=== PATIENT | female | born 1960 | race Caucasian/White ===

== ENCOUNTER → 2018-07-16 | Outpatient (CLI) | payer BC ==
--- NOTE | 2018-07-16 16:03 | CT ---
EXAM DESCRIPTION: Abdomen/Pelvis w/Contrast: Computed Tomography. CLINICAL HISTORY: 57 years Female DIARRHEA COMPARISON: None. TECHNIQUE: Spiral-axial scans at 5 x 5 mm intervals through the abdomen and pelvis, after nonionic IV contrast without oral contrast Coronal and sagittal 2.0 mm reconstructions. Delayed scans, liver through the pelvis. Axial-spiral 5mm. No adverse reactions. Total Exam DLP: 1120.89 mGy-cm. This exam was performed according to our departmental dose-optimization program which includes automated exposure control, adjustment of the mA and/or kV according to patient size and/or use of iterative reconstruction technique; to reduce radiation dose to as low as reasonably achievable (ALARA). FINDINGS: Lung bases and pleura: Small parenchymal pleural scar medial left base. Liver, Stomach, Spleen, Adrenal Glands: Negative. Pancreas, Gallbladder, Ducts: Gallbladder visualized. No free fluid. Ducts and pancreas unremarkable. Kidneys and Ureters: Negative. Mesentery: Questionable fluid in the cul-de-sac. Minimal stranding around the vaginal cuff. No free air. No fatty stranding or fascial thickening in the abdomen.. Aorta: Minimal atherosclerotic calcification. Normal diameter of the lumen. Small Bowel: Normal caliber. Terminal Ileum/Cecum normal caliber. Normal caliber of the appendix. Normal density of the surrounding fat. Colon: Normal caliber. Diverticula in the distal descending colon and sigmoid colon but no evidence of complications. Pelvic Organs: The borders of the vaginal cuff are well-defined with minimal fatty stranding. This extends into the right adnexa abutting segments of ileum. Minimal fluid in the cul-de-sac. Spine and Bony Pelvis: Negative. Abdominal Wall/Back Soft Tissues: Negative. IMPRESSION: 1. Increased density of the pelvic fat around the vaginal cuff and right adnexa with no definite mass. Minimal fluid in the cul-de-sac. This may represent a chronic process versus acute inflammation. Small bowel also seen the right adnexa but no small bowel obstruction or significant distention. Normal CT appearance of the appendix. Consider endovaginal pelvic ultrasound if there are clinical findings in the pelvis. 2. Diverticula in the distal descending colon and sigmoid but no complications. CRITICAL COMMUNICATION: The critical value was discussed directly by phone with Dr. Ad Whaley at approximately 1535 hours, on 07/16/2018. Electronically signed by: Rajesh Santiago MD 07/16/2018 4:02 PM [employer] [employer]
== END ==
LOC: CT 12:45
PROVIDERS: ATTEND Family Medicine
DX: R19.7 Diarrhea, unspecified (principal); K57.30 Diverticulosis of large intestine without perforation or abscess without bleeding

== ENCOUNTER → 2018-07-17 | Outpatient (CLI) | payer BC | LOC: LAB.O 12:04 | PROVIDERS: ATTEND Family Medicine | DX: R19.7 Diarrhea, unspecified (principal) ==

== ENCOUNTER 2020-08-21 09:02 | Emergency (ER) | payer BC ==
[2020-08-21] MEDS: SODIUM CHLORIDE 0.9% (FLUSH) 10 ML SYG IV PRN (09:32)
[2020-08-21] MEDS: SODIUM CHLORIDE 0.9% 1000ML 1,000 ML IVS ONE (10:02)
--- NOTE | 2020-08-21 10:14 | RAD ---
EXAM DESCRIPTION: Chest,1 View CLINICAL HISTORY: chest tightness COMPARISON: 03 June 2009 TECHNIQUE: AP portable chest FINDINGS: The lungs are clear. There is no infiltrate or effusion. The heart is normal size. IMPRESSION: Normal portable chest Electronically signed by: Yo Lloyd MD 08/21/2020 10:12 AM [facility] [[email or web address]]
--- NOTE | 2020-08-21 11:21 | ED.PDOC ---
History of Present Illness - General Chief Complaint: GI Problem Stated Complaint: diarrhea X 5 days, fatigue Time Seen by Provider: 08/21/20 09:48 - History of Present Illness Initial Comments: PATIENT PRESENTS WITH SEVERAL DAY HISTORY OF DIARRHEA, SUBJECTIVE FEVER, SHE IS CONCERNED THAT SHE MIGHT HAVE COVID. DOES NOT HAVE ANY SYMPTOMS. Pain Radiation: no radiation Quality: mild Timing/Duration: days - 3 Worsening Factors: nothing Associated Symptoms: denies symptoms Review of Systems - Review of Systems Constitutional: States: fever EENTM: States: no symptoms reported Respiratory: States: cough Cardiology: States: no symptoms reported Gastrointestinal/Abdominal: States: see HPI Genitourinary: States: no symptoms reported Skin: States: no symptoms reported Past Medical History (General) - Patient Medical History Hx Seizures: No Hx Stroke: No Hx Dementia: No Hx Asthma: Yes - seasonal Hx of COPD: No Hx Cardiac Disorders: No Hx Congestive Heart Failure: No Hx Pacemaker: No Hx Hypertension: No Hx Thyroid Disease: No Hx Diabetes: No Hx Gastroesophageal Reflux: No Hx Renal Disease: No Hx Cancer: No Hx of HIV: No Hx Hepatitis C: No Hx MRSA: No Surgical History: Hysterectomy - Vaccination History Hx Tetanus, Diphtheria Vaccination: No Hx Influenza Vaccination: No Hx Pneumococcal Vaccination: No - Social History Hx Tobacco Use: No Hx Alcohol Use: No Family Medical History - Family History Mother Family History: Unknown Physical Exam - Physical Exam General Appearance: Agitated, Alert, Well Developed, Well Groomed, Well Hydrated, Well Nourished Eyes, Ears, Nose, Throat Exam: PERRL/EOMI, normal ENT inspection, TMs normal Neck: non-tender, full range of motion, normal inspection Respiratory: chest non-tender, lungs clear, normal breath sounds, no respiratory distress Cardiovascular/Chest: normal peripheral pulses, regular rate, rhythm, no edema, no gallop Gastrointestinal/Abdominal: normal bowel sounds, non tender, soft, no organomegaly Extremity: normal range of motion, non-tender, normal inspection Neurologic: no motor/sensory deficits, alert, normal mood/affect, oriented x 3 Progress - EKG/XRAY/CT CT Ordered: No Departure - Departure Clinical Impression: Viral gastroenteritis Diarrhea Qualifiers: Diarrhea type: infectious Qualified Code(s): A09 - Infectious gastroenteritis and colitis, unspecified Time of Disposition: 11:18 Disposition: Discharge to Home or Self Care Condition: Good Departure Forms: ED Discharge - Pt. Copy, Patient Portal Self Enrollment Instructions: Viral Gastroenteritis Referrals: YASIR DUGAN MD [Primary Care Provider] - 1-2 Weeks Prescriptions: Diphenoxylate/Atropine [Lomotil Tab] 2.5 mg PO QID PRN #15 tab PRN Reason: Diarrhea Ondansetron Odt [Zofran ODT] 8 mg PO Q8H PRN #15 tab PRN Reason: nausea/ vomiting Home Medications: Ambulatory Orders Diphenoxylate/Atropine [Lomotil Tab] 2.5 mg PO QID PRN #15 tab 08/21/20 Ondansetron Odt [Zofran ODT] 8 mg PO Q8H PRN #15 tab 08/21/20 Additional Instructions: CALL AND GET RESULTS OF COVID TEST ON FRIDAY. CONTACT PCP AND ARRANGE A FOLLOW UP VIRTUAL VISIT THIS WEEK. CONTINUE SELF QUARANTINE FOR 10 DAYS IF TEST IS POSITIVE. RETURN TO ER FOR SHORTNESS OF BREATH OR PULSE OXIMETER LESS THAN 90%.
[2020-08-21 11:36] VITALS: BP 120/68; TEMP 97.6; O2SAT 99
== END 2020-08-21 11:36 | disposition home or self-care (01) ==
LOC: ER 09:02
DX: U07.1 COVID-19 (principal); A08.39 Other viral enteritis